=== PATIENT | male | born 1990 | race Two or more races ===

== ENCOUNTER 2016-11-21 00:06 | Emergency (ER) | payer OTHER ==
[2016-11-21 00:14] VITALS: BP 130/80; PULSE 73; RESP 18; TEMP 98
[2016-11-21] MEDS ORDERED: DIPH,PERTUS(ACELL)TETVAC-LF 0.5 ML VIAL IM ONE (00:28)
--- NOTE | 2016-11-21 00:29 | ED ---
Wound/Laceration HPI - General Chief Complaint: Wound/Laceration Stated Complaint: arm lac [facility] Time Seen by Provider: 11/21/16 00:17 Source: patient, RN notes reviewed Mode of arrival: ambulatory Limitations: no limitations - History of Present Illness Initial Comments: Patient is 18-year-old male chief complaint of a laceration over his left forearm. Patient reports he was at work and was cut with a utility knife. Patient reports that afterward he did have some swelling over the area. He does not know if he is up-to-date on his tetanus vaccination. He denies any decreased range of motion to the arm. He denies any peripheral paresthesias. - Related Data Home Medications Medication Instructions Recorded Confirmed No Known Home Medications [No 11/21/16 11/21/16 Known Home Medications] Allergies Allergy/AdvReac Type Severity Reaction Status Date / Time No Known Allergies Allergy Verified 11/21/16 00:14 Review of Systems ROS Statement: Those systems with pertinent positive or pertinent negative responses have been documented in the HPI. ROS Other: All systems not noted in ROS Statement are negative. Past Medical History Past Medical History: No Reported History History of Any Multi-Drug Resistant Organisms: None Reported Past Surgical History: No Surgical Hx Reported Past Psychological History: No Psychological Hx Reported Smoking Status: Never smoker Past Alcohol Use History: None Reported Past Drug Use History: None Reported General Exam - General Exam Comments Initial Comments: Pleasant well appearing 26 year old male, no distress. Limitations: no limitations General appearance: alert, in no apparent distress Head exam: Present: atraumatic, normocephalic, normal inspection Eye exam: Present: normal appearance, PERRL, EOMI. Absent: scleral icterus, conjunctival injection, periorbital swelling ENT exam: Present: normal exam, mucous membranes moist Neck exam: Present: normal inspection. Absent: tenderness, meningismus, lymphadenopathy Respiratory exam: Present: normal lung sounds bilaterally. Absent: respiratory distress, wheezes, rales, rhonchi, stridor Cardiovascular Exam: Present: regular rate, normal rhythm, normal heart sounds. Absent: systolic murmur, diastolic murmur, rubs, gallop, clicks GI/Abdominal exam: Present: soft, normal bowel sounds. Absent: distended, tenderness, guarding, rebound, rigid Extremities exam: Present: normal inspection, full ROM, normal capillary refill. Absent: tenderness, pedal edema, joint swelling, calf tenderness Left Forearm Wrist exam: Present: full ROM, swelling, laceration (2cm lacerationover left proximal posterior forearm. ). Absent: normal inspection, tenderness Hand Wrist exam: Present: normal inspection, full ROM Neuro motor exam: Present: wrist extension intact, thumb opposition intact, thumb IP flexion intact, thumb adduction intact, fingers 2-5 abduction intact Neurosensory exam: Present: radial nerve intact, ulnar nerve intact, median nerve intact Vascular: Present: normal capillary refill Back exam: Present: normal inspection Neurological exam: Present: alert, oriented X3, CN II-XII intact Psychiatric exam: Present: normal affect, normal mood Skin exam: Present: warm, dry, intact, normal color. Absent: rash Course Vital Signs 11/21/16 00:11 Temperature 98.0 F Pulse Rate 73 Respiratory 18 Rate Blood Pressure 130/80 O2 Sat by Pulse 97 Oximetry Procedures - Laceration Laceration #1 Time Out Performed: Yes Indication: laceration Site: upper extremity (left forearm ) Size (cm): 2 Description: linear Depth: involves muscle layer Anesthetic Used: benzocaine 0.25% Anesthesia Technique: local infiltration Amount (mls): 4 Pre-repair: wound explored, irrigated extensively Type of Sutures: nylon Size of Sutures: 5-0 Number of Sutures: 3 Patient Tolerated Procedure: well, no complications Medical Decision Making - Medical Decision Making Patient is a 18-year-old male chief complaint of a left forearm laceration after he was hit with a knife while at work today. Patient reports that he is unsure of his tetanus shot is up-to-date. Patient was given 3 sutures. The laceration was irrigated and well approximated. There is evidence of mild muscle involvement with the laceration. Patient has no difficulty with any flexion and extension of the elbow or wrist. Patient was advised to monitor for any signs of infection and to return to the emergency department if any alarming signs or symptoms occur. Patient understands he needs to return for suture removal in approximately 1 week. Patient updated on tetanus. Return parameters were discussed. Disposition Clinical Impression: Laceration of left forearm Disposition: HOME SELF-CARE Condition: Good Instructions: Care For Your Stitches (ED) Additional Instructions: Please return to the emergency room in 8-10 days to have sutures removed. Please leave wound covered for the first 24-48 hours and then leave open to air after that time. Please use clean soap and water to clean the suture area to prevent scabbing over the top of your sutures. Please watch for any signs of infection which may include but not limited to increased pain, swelling, redness , fever or chills. Please return to the emergency room if any signs of infection do occur. Please return to the emergency room for any other concerns or complications. Referrals: None,Stated [Primary Care Provider] - 1-2 days Time of Disposition: 01:00
== END 2016-11-21 01:45 | disposition home or self-care (01) ==
LOC: EC 00:06
DX: S51.812A Laceration without foreign body of left forearm, initial encounter (principal); W26.0XXA Contact with knife, initial encounter; Y99.0 Civilian activity done for income or pay; Z23 Encounter for immunization
CPT/HCPCS: 12001; 90471; 90715; 99282